=== PATIENT | female | born 1985 | race Caucasian/White ===

== ENCOUNTER 2017-10-23 20:18 | Emergency (ER) | payer SELFPAY ==
[~2017-10-23] VITALS: Ht 172.7 cm; Wt 78.0 kg
[2017-10-23 21:35] VITALS: BP 108/59; PULSE 82; RESP 20; TEMP 98; O2SAT 100
[2017-10-23 21:42] VITALS: BP 109/61; PULSE 90; RESP 20; TEMP 98; O2SAT 100
[2017-10-23] MEDS ORDERED: SODIUM CHLOR 0.9% 1000 ML INJ 1,000 ML IV ONE (21:45)
[2017-10-23 22:08] VITALS: BP 117/61; PULSE 84; RESP 12; O2SAT 94
--- NOTE | 2017-10-23 22:39 | PD ---
Physical Exam Narrative I, Dr. Mckeon, have reviewed the advance practice practitioner's documentation and am in agreement, met with the patient face to face, made the diagnosis, and the medical decision making was done by me. *My assessment and Findings: Heroin overdose 31yo F was brought in by [facility] for heroin overdose. Pt was not given narcan initially since she was awake and alert but then at ambulance coker, she was dosing off so she was given narcan 0.4mg by [facility]. Pt is awake and alert when I evaluated her. She denies any complains. Told me to injected heroin in her right arm to get high. Labs were ordered by my PA and showed mild leukocytosis at 14.1. H/H normal. Glucose 139. Blood alcohol negative. Pt has been observed for over 3 hours and did not need another dose of narcan. Pt's boyfriend is here to pick her up. Pt is still awake and alert and denies any complaints. Data Data Last Documented VS Vital Signs Date Time Temp Pulse Resp B/P (MAP) Pulse Ox O2 Delivery O2 Flow Rate FiO2 10/23/17 22:43 86 19 97/58 (71) 97 Nasal Cannula 2.00 10/23/17 21:42 98.0 Orders Orders Complete Blood Count With Diff (10/23/17 21:34) Comprehensive Metabolic Panel (10/23/17 21:34) Drug Screen, Random Urine (10/23/17 21:34) Alcohol (Ethanol) (10/23/17 21:34) Ed Urine Pregnancytest Poc (10/23/17 21:34) Sodium Chlor 0.9% 1000 Ml Inj (Ns 1000 M (10/23/17 21:45) Labs Laboratory Tests Test 10/23/17 22:35 White Blood Count 14.1 TH/MM3 Red Blood Count 4.54 MIL/MM3 Hemoglobin 13.6 GM/DL Hematocrit 41.5 % Mean Corpuscular Volume 91.4 FL Mean Corpuscular Hemoglobin 29.9 PG Mean Corpuscular Hemoglobin Concent 32.7 % Red Cell Distribution Width 13.1 % Platelet Count 224 TH/MM3 Mean Platelet Volume 9.2 FL Neutrophils (%) (Auto) 84.7 % Lymphocytes (%) (Auto) 8.0 % Monocytes (%) (Auto) 7.1 % Eosinophils (%) (Auto) 0.0 % Basophils (%) (Auto) 0.2 % Neutrophils # (Auto) 12.0 TH/MM3 Lymphocytes # (Auto) 1.1 TH/MM3 Monocytes # (Auto) 1.0 TH/MM3 Eosinophils # (Auto) 0.0 TH/MM3 Basophils # (Auto) 0.0 TH/MM3 CBC Comment DIFF FINAL Differential Comment Blood Urea Nitrogen 15 MG/DL Creatinine 1.06 MG/DL Random Glucose 139 MG/DL Total Protein 7.4 GM/DL Albumin 3.8 GM/DL Calcium Level 8.8 MG/DL Alkaline Phosphatase 94 U/L Aspartate Amino Transf (AST/SGOT) 14 U/L Alanine Aminotransferase (ALT/SGPT) 24 U/L Total Bilirubin 0.1 MG/DL Sodium Level 143 MEQ/L Potassium Level 3.4 MEQ/L Chloride Level 108 MEQ/L Carbon Dioxide Level 25.7 MEQ/L Anion Gap 9 MEQ/L Estimat Glomerular Filtration Rate 60 ML/MIN Ethyl Alcohol Level LESS THAN 3 MG/DL MDM Supervised Visit with GAYLE: Yes Interpretation(s) EKG: NSR 79bpm. Normal axis. QRS narrow. Diagnosis Primary Impression: Heroin overdose Qualified Codes: T40.1X1A - Poisoning by heroin, accidental (unintentional), initial encounter Patient Instructions: General Instructions Departure Forms: Tests/Procedures Additional Instruction: Please follow up with your primary care physician in 2-3 days. Return to the ED if symptoms worsen. Med/Other Pt SpecificInfo: Prescription(s) given Scripts Naloxone Nasal [place] (Narcan Nasal [place]) 4 Mg/Act [place] 4 MG NASAL ONCE Y for OPIOID OVERDOSE, #1 SPRAY 0 Refills Contents of 1 nasal spray as a single dose; may repeat every 2 to 3 minutes in alternating nostrils until medical assistance becomes available. Prov: MckeonSuzi carrasquillosusan PHILLIPS 10/24/17 Disposition: DISCHARGE HOME Condition: Stable Parris Mckeon DO October 23, 2017 22:39
[2017-10-23 22:43] VITALS: BP 97/58; PULSE 86; RESP 19; O2SAT 97
--- NOTE | 2017-10-23 22:43 | PD ---
HPI Chief Complaint: Alcohol/Drug Intoxication Time Seen by Provider: 21:29 Travel History International Travel<30 days: No Contact w/Intl Traveler<30days: No Traveled to known affect area: No History of Present Illness HPI 31-year-old female that presents to the ED for evaluation of overdose. Patient was brought here by ambulance for evaluation of this. Apparently the patient's boyfriend called the ambulance secondary to patient having injected heroin and starting to be cyanotic. There was question whether patient had CPR by the boyfriend but apparently patient was walking and talking to the ambulance and she actually walked into the ambulance herself. She was not given any Narcan. She was evaluated and brought here for evaluation. Apparently on the way here patient started being cyanotic and had to be given Narcan. Patient is now back to normal. Patient voices no complaints. No other medical issues. She only voices complaint that she is concerned about her wallet which her boyfriend has. She is concerned about her boyfriend not been here she is concerned she might be losing all herself. No other medical issues. No chest pain or shortness of breath. She denies this being a suicidal attempt. [facility] Past Medical History Medical other: Yes (LUPUS) Immunizations Current: Yes Tetanus Vaccination: Unknown Influenza Vaccination: No ?: Not Tubal Ligation: Yes Past Surgical History Abdominal Surgery: Yes (TUBAL LIGATION) Social History Alcohol Use: Yes Tobacco Use: Yes Substance Use: Yes (HERION) Allergies-Medications (Allergen,Severity, Reaction): Coded Allergies: No Known Allergies (Unverified , 10/23/17) Reported Meds & Prescriptions Reported Meds & Active Scripts Active No Active Prescriptions or Reported Medications Review of Systems Except as stated in HPI: all other systems reviewed are Neg Physical Exam Narrative GENERAL: SKIN: Warm and dry. HEAD: Atraumatic. Normocephalic. EYES: Pupils equal and round. No scleral icterus. No injection or drainage. ENT: No nasal bleeding or discharge. Mucous membranes pink and moist. Tongue is midline. No uvula deviation. NECK: Trachea midline. No JVD. CARDIOVASCULAR: Regular rate and rhythm. no murmurs, s3, s4. RESPIRATORY: No accessory muscle use. Clear to auscultation. Breath sounds equal bilaterally. GASTROINTESTINAL: Abdomen soft, non-tender, nondistended. Hepatic and splenic margins not palpable. MUSCULOSKELETAL: Extremities without clubbing, cyanosis, or edema. No obvious deformities. full ROM of the upper and lower extremities bilaterally. 2+ pulses bilaterally. NEUROLOGICAL: Awake and alert. No obvious cranial nerve deficits. Motor grossly within normal limits. Five out of 5 muscle strength in the arms and legs. Normal speech. PSYCHIATRIC: Appropriate mood and affect; insight and judgment normal. Data Data Last Documented VS Vital Signs Date Time Temp Pulse Resp B/P (MAP) Pulse Ox O2 Delivery O2 Flow Rate FiO2 10/23/17 22:08 84 12 117/61 (79) 94 Nasal Cannula 2.00 10/23/17 21:42 98.0 Orders Orders Complete Blood Count With Diff (10/23/17 21:34) Comprehensive Metabolic Panel (10/23/17 21:34) Psych Screen (10/23/17 21:34) Drug Screen, Random Urine (10/23/17 21:34) Alcohol (Ethanol) (10/23/17 21:34) Salicylates (Aspirin) (10/23/17 21:34) Tylenol (Acetaminophen) (10/23/17 21:34) Ed Urine Pregnancytest Poc (10/23/17 21:34) Sodium Chlor 0.9% 1000 Ml Inj (Ns 1000 M (10/23/17 21:45) MDM Medical Decision Making Medical Screen Exam Complete: Yes Emergency Medical Condition: Yes Medical Record Reviewed: Yes Differential Diagnosis Polysubstance abuse versus overdose versus opiate abuse Narrative Course 31-year-old female that presents to the ED for evaluation of polysubstance abuse. Patient was properly examined and was found to have signs and symptoms consistent with acute overdose. No complaints at this time. Labs were done. Patient was given IV fluids. Patient will be medically clear and discharged after observation. This was sent up to my attending pending disposition and likely discharge. Diagnosis Primary Impression: Opiate overdose Qualified Codes: T40.601A - Poisoning by unspecified narcotics, accidental ( unintentional), initial encounter Scripts No Active Prescriptions or Reported Meds David Masterson October 23, 2017 22:43
[2017-10-23 23:06] LABS: BASOPHIL % 0.2 % (0.0-2.0); HEMATOCRIT 41.5 % (35.0-46.0); HEMOGLOBIN 13.6 GM/DL (11.6-15.3); LYMPHOCYTE # 1.1 TH/MM3 (1.0-4.8); MEAN CELL VOLUME 91.4 FL (80.0-100.0); MEAN CORPUSCULAR HEMOGLOBIN 29.9 PG (27.0-34.0); MEAN CORPUSCULAR HGB CONC 32.7 % (32.0-36.0); MEAN PLATELET VOLUME 9.2 FL (7.0-11.0); MONO % 7.1 % (0.0-8.0); NEUT % 84.7 % (16.0-70.0); PLATELET COUNT 224 TH/MM3 (150-450); RED BLOOD COUNT 4.54 MIL/MM3 (4.00-5.30); RED CELL DISTRIBUTION WIDTH 13.1 % (11.6-17.2); WHITE BLOOD COUNT 14.1 TH/MM3 (4.0-11.0)
[2017-10-23 23:19] LABS: ALBUMIN 3.8 GM/DL (3.4-5.0); ALT (GPT) 24 U/L (10-53); AST (GOT) 14 U/L (15-37); BICARBONATE 25.7 MEQ/L (21.0-32.0); BLOOD UREA NITROGEN 15 MG/DL (7-18); CALCIUM 8.8 MG/DL (8.5-10.1); CHLORIDE 108 MEQ/L (98-107); CREATININE 1.06 MG/DL (0.50-1.00); GLOMERULAR FILTRATION RATE 60 ML/MIN (>89); GLUCOSE,RANDOM 139 MG/DL (74-106); SODIUM (NA) 143 MEQ/L (136-145)
[2017-10-23 23:21] LABS: ALKALINE PHOSPHATASE 94 U/L (45-117); TOTAL BILIRUBIN ADULT 0.1 MG/DL (0.2-1.0); TOTAL PROTEIN 7.4 GM/DL (6.4-8.2)
[2017-10-24] MEDS ORDERED: NALO1SPR NASAL (00:39)
--- NOTE | 2017-10-24 14:58 | EKG ---
Date Performed: 10/23/2017 Time Performed: 21:38:19 PTAGE: 31 years EKG: Baseline artifact present Sinus rhythm WITH SINUS ARRHYTHMIA NORMAL ECG NO PREVIOUS TRACING DOCTOR: Lei Glass Interpretating Date/Time 10/24/2017 14:57:18
== END 2017-10-24 01:02 | disposition home or self-care (01) ==
LOC: NEPC 20:18
DX: T40.1X1A Poisoning by heroin, accidental (unintentional), initial encounter (principal); M32.9 Systemic lupus erythematosus, unspecified; Z72.0 Tobacco use
CPT/HCPCS: 80053; 80307; 85025; 93005; 99284; J7030